=== PATIENT | male | born 1960 | race Hispanic/Latino ===

== ENCOUNTER 2019-03-17 06:44 | Emergency (ER) | payer BC, SELFPAY ==
[2019-03-17] MEDS ORDERED: Fluorescein Opthalmic Strip ONE (06:57)
[2019-03-17] MEDS ORDERED: Proparacaine 0.5% Opth 15 ML BOT ONE (06:57)
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
== END 2019-03-17 08:20 | disposition home or self-care (01) ==
LOC: ERS 06:44
DX: S05.31XA Ocular laceration without prolapse or loss of intraocular tissue, right eye, initial encounter (principal); V43.52XA Car driver injured in collision with other type car in traffic accident, initial encounter